=== PATIENT | female | born 1955 | race Caucasian/White ===

== ENCOUNTER → 2016-07-08 | Outpatient (CLI) | payer BC ==
[~2016-07-08] MED LIST: ASPIRIN E.C. 8181 MG PO
== END ==
LOC: MC.RAD 07:00
DX: Z12.31 Encounter for screening mammogram for malignant neoplasm of breast (principal)

== ENCOUNTER → 2017-08-06 | Outpatient (CLI) | payer BC | LOC: MC.RAD 08:20 | DX: Z12.31 Encounter for screening mammogram for malignant neoplasm of breast (principal) ==

== ENCOUNTER → 2019-02-07 | Outpatient (CLI) | payer BC | LOC: MC.RAD 11:07 | DX: Z12.31 Encounter for screening mammogram for malignant neoplasm of breast (principal) ==

== ENCOUNTER → 2020-08-21 | Outpatient (CLI) | payer BC | LOC: MC.RAD 07:58 | DX: Z12.31 Encounter for screening mammogram for malignant neoplasm of breast (principal) ==

== ENCOUNTER → 2021-03-18 | Outpatient (CLI) | payer BC | LOC: COL.RAD 11:29 | DX: R31.29 Other microscopic hematuria (principal) ==